=== PATIENT | female | born 1955 | race Caucasian/White ===

== ENCOUNTER → 2020-02-02 | Outpatient (CLI) | payer OTHER ==
[~2020-02-02] MED LIST: ALLERGY RELIEF10 M5 PO; CRESTOR5 MG PO; DIAZEPAM 5 MG5 M1 PO; DOXEPIN 10 MG C10 MG PO; GABAPENTIN100 MG PO; METHOCARBAMOL500 M2 PO; NORCO 7.5-3251 EACH PO; REQUIP 1 MG TABL1 M1 PO; SINGULAIR 10 MG10 M1 PO; SYNTHROID25 MCG PO
== END ==
LOC: M.RAD 14:37
PROVIDERS: ATTEND Family Medicine
DX: S60.221A Contusion of right hand, initial encounter (principal); M18.9 Osteoarthritis of first carpometacarpal joint, unspecified; X58.XXXA Exposure to other specified factors, initial encounter; Y93.89 Activity, other specified; Y92.89 Other specified places as the place of occurrence of the external cause; Y99.8 Other external cause status